=== PATIENT | male | born 2000 | race Caucasian/White ===

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

== ENCOUNTER 2020-10-12 07:10 | Emergency (ER) | payer OTHER ==
[~2020-10-12] VITALS: Ht 170.2 cm; Wt 67.6 kg
[~2020-10-12 07:10] MED LIST changes: -ADAL40PEN; +ADAL40PEN IM
== END 2020-10-12 08:47 | disposition home or self-care (01) ==
LOC: ER 07:10
DX: U07.1 COVID-19 (principal); Z87.891 Personal history of nicotine dependence
CPT/HCPCS: 99284

== ENCOUNTER 2021-07-25 08:57 | Day surgery (SDC) | payer OTHER ==
[~2021-07-25] VITALS: Ht 172.7 cm; Wt 61.6 kg
--- NOTE | 2021-07-25 12:02 | NUR ---
07/25/21 1202 Beau Lo LATE ENTRY: PT WOKE UP FROM PROCEDURE WELL, COMMUNICATES CLEARLY. PT STATES HE FEELS GREAT PRIOR TO GOING HOME. PT HEART RATE DROPPED TO 42BPM DURING RECOVERY, PT ASYMPTOMATIC AND COMMUNICATES CLEARLY. DR. GOMEZ AWARE AND IS OK TO DISCHARGE PT HOME. RN EDUCATED PT AND FAMILY MEMBER TO FOLLOW UP WITH PCP ESPECIALLY IF PT STARTS TO HAVE ANY SYMPTOMS FROM BRADYCARDIA.
== END 2021-07-25 11:40 | disposition home or self-care (01) ==
LOC: ORSCSDS 08:57
PROVIDERS: Internal Medicine Gastroenterology
PROC: 0DBE8ZX Excision of Large Intestine, Via Natural or Artificial Opening Endoscopic, Diagnostic (ICD-10-PCS; principal; 2021-07-25 10:15)
DX: K50.813 Crohn's disease of both small and large intestine with fistula (principal); Z86.010 Personal history of colon polyps; Z86.16 Personal history of COVID-19; Z79.899 Other long term (current) drug therapy
CPT/HCPCS: 88305; J2250; J2704; J7120

== ENCOUNTER 2021-11-17 20:22 | Emergency (ER) | payer OTHER ==
[~2021-11-17] VITALS: Ht 170.2 cm; Wt 63.0 kg
[2021-11-17 21:48] LABS: BASOPHILS ABSOLUTE AUTO 0.08 K/mm3 (0.00-0.23); BASOPHILS PERCENT AUTO 1 % (0-2); EOSINOPHILS ABSOLUTE AUTO 0.09 K/mm3 (0.00-0.68); EOSINOPHILS PERCENT AUTO 1 % (0-6); Hematocrit 44.9 % (37.0-53.0); Hemoglobin 15.3 g/dL (13.5-17.5); IMMATURE GRAN ABSOLUTE AUTO 0.01 K/mm3 (0.00-0.10); IMMATURE GRAN PERCENT AUTO 0 % (0-1); LYMPHOCYTES ABSOLUTE AUTO 3.02 K/mm3 (0.84-5.20); LYMPHOCYTES PERCENT AUTO 39 % (21-46); MONOCYTES ABSOLUTE AUTO 1.23 K/mm3 (0.16-1.47); MONOCYTES PERCENT AUTO 16 % (4-13); Mean Corpuscular HGB 30.7 pg (26.0-34.0); Mean Corpuscular HGB Conc 34.1 g/dL (31.5-36.5); Mean Corpuscular Volume 90 fL (80-100); Mean Platelet Volume 9.9 fL (9.1-12.4); NEUTROPHILS ABSOLUTE AUTO 3.35 K/mm3 (1.96-9.15); NEUTROPHILS PERCENT AUTO 43 % (41-73); Platelet Count 280 K/mm3 (150-400); RDW Coefficient Variation 11.7 % (11.7-14.2); RDW Standard Deviation 38.1 fL (35.1-46.3); Red Blood Cell Count 4.99 M/mm3 (4.30-5.90); White Blood Cell Count 7.78 K/mm3 (4.00-11.30)
[2021-11-17 21:52] LABS: Albumin, Blood 3.9 g/dL (3.4-5.0); Albumin/Globulin Ratio 1.1 (0.8-1.8); Bilirubin, Total 0.5 mg/dL (0.1-1.0); Bun/Creatinine Ratio 14.7 (12.0-20.0); Calcium, Blood 9.4 mg/dL (8.5-10.1); Creatinine, Blood 0.82 mg/dL (0.60-1.20); Globulin, Blood 3.5 g/dL (2.2-4.0); Potassium, Blood 3.9 mmol/L (3.5-5.5); Total Protein, Blood 7.4 g/dL (6.4-8.2)
== END 2021-11-18 00:47 | disposition home or self-care (01) ==
LOC: ER 20:22
PROVIDERS: Student in an Organized Health Care Education/Training Program
DX: N20.0 Calculus of kidney (principal); Z87.891 Personal history of nicotine dependence; Z79.899 Other long term (current) drug therapy
CPT/HCPCS: 36415; 80053; 83690; 85025

== ENCOUNTER 2022-08-10 09:49 | Emergency (ER) | payer OTHER ==
[~2022-08-10] VITALS: Ht 170.2 cm; Wt 59.0 kg
[2022-08-10 10:30] LABS: BASOPHILS ABSOLUTE AUTO 0.07 K/mm3 (0.00-0.23); BASOPHILS PERCENT AUTO 1 % (0-2); EOSINOPHILS ABSOLUTE AUTO 0.09 K/mm3 (0.00-0.68); EOSINOPHILS PERCENT AUTO 1 % (0-6); Hematocrit 44.1 % (37.0-53.0); Hemoglobin 15.1 g/dL (13.5-17.5); IMMATURE GRAN ABSOLUTE AUTO 0.01 K/mm3 (0.00-0.10); IMMATURE GRAN PERCENT AUTO 0 % (0-1); LYMPHOCYTES ABSOLUTE AUTO 3.03 K/mm3 (0.84-5.20); LYMPHOCYTES PERCENT AUTO 36 % (21-46); MONOCYTES ABSOLUTE AUTO 1.04 K/mm3 (0.16-1.47); MONOCYTES PERCENT AUTO 12 % (4-13); Mean Corpuscular HGB 30.7 pg (26.0-34.0); Mean Corpuscular HGB Conc 34.2 g/dL (31.5-36.5); Mean Corpuscular Volume 90 fL (80-100); Mean Platelet Volume 9.8 fL (9.1-12.4); NEUTROPHILS ABSOLUTE AUTO 4.27 K/mm3 (1.96-9.15); NEUTROPHILS PERCENT AUTO 50 % (41-73); Platelet Count 255 K/mm3 (150-400); RDW Standard Deviation 39.5 fL (35.1-46.3); Red Blood Cell Count 4.92 M/mm3 (4.30-5.90); White Blood Cell Count 8.51 K/mm3 (4.00-11.30)
[2022-08-10 10:57] LABS: Albumin, Blood 4.2 g/dL (3.4-5.0); Albumin/Globulin Ratio 1.3 (0.8-1.8); Bilirubin, Total 0.6 mg/dL (0.1-1.0); Bun/Creatinine Ratio 15.7 (12.0-20.0); Creatinine, Blood 1.02 mg/dL (0.60-1.20); Globulin, Blood 3.2 g/dL (2.2-4.0); Potassium, Blood 4.1 mmol/L (3.5-5.5); Total Protein, Blood 7.4 g/dL (6.4-8.2)
[2022-08-10 11:07] LABS: Source, Urine Clean Catch
[2022-08-10 11:21] LABS: Appearance, Urine Hazy (Clear); Bilirubin, Urine Neg (Neg); Blood, Urine 5+ (Neg); Color, Urine Amber (P-Yellow); Glucose Qualitative, Urine Neg (Neg); Ketones, Urine Neg (Neg); Leukocyte Esterase, Urine Neg (Neg); Nitrite, Urine Neg (Neg); Protein, Urine 2+ (Neg); Specific Gravity, Urine 1.015 (1.003-1.022); Urobilinogen, Urine NORM (Normal)
[2022-08-10 11:40] LABS: Bacteria Rare /hpf; Red Blood Cells, Urine 25-50 /hpf (0-2); Squamous Epithelial Cells Not Seen /hpf (Few); White Blood Cells, Urine 0-2 /hpf (0-5)
[2022-08-10 12:15] VITALS: BP 125/77
[2022-08-10] MEDS ORDERED: ONDA4ODT MM (13:48)
== END 2022-08-10 14:03 | disposition home or self-care (01) ==
LOC: ER 09:49
PROVIDERS: Physician Assistant; Student in an Organized Health Care Education/Training Program
DX: N13.2 Hydronephrosis with renal and ureteral calculous obstruction (principal); N50.811 Right testicular pain
CPT/HCPCS: 74177; 76870; 80053; 81001; 83690; 85025; J1885; Q9967

== ENCOUNTER → 2024-02-17 | Outpatient (CLI) | payer OTHER ==
[~2024-02-17] MED LIST changes: +ONDA4ODT MM
[2024-02-22 11:31] LABS: CALCIUM, URINE - PER 24H 142 mg/d (100-250); CALCIUM, URINE - PER VOLUME 20.3 mg/dL; CHLORIDE, URINE - PER 24H 112 mmol/d (140-250); CHLORIDE, URINE - PER VOLUME 160 mmol/L; CITRIC ACID, URINE - PER 24H 218 mg/d (320-1240); CITRIC ACID,URINE - PER VOLUME 311 mg/L; CREATININE, URINE - PER 24H 1169 mg/d (1000-2500); CREATININE, URINE - PER VOLUME 167 mg/dL; HOURS COLLECTED 24 hr; MAGNESIUM, URINE PER 24H 56 mg/d (12-199); OXALATE, URINE - PER 24H 13 mg/d (16-49); OXALATE, URINE - PER VOLUME 19 mg/L; PH, URINE 5.74 (5.00-7.50); PHOSPHORUS, URINE - PER 24H 525 mg/d (400-1300); PHOSPHORUS, URINE - PER VOLUME 75 mg/dL; POTASSIUM, URINE - PER 24H 32 mmol/d (25-125); POTASSIUM, URINE - PER VOLUME 46 mmol/L; SODIUM, URINE - PER 24H 110 mmol/d (51-286); SODIUM, URINE - PER VOLUME 157 mmol/L; SULFATE, URINE - PER 24H 21 mmol/d (6-30); SULFATE, URINE - PER VOLUME 30 mmol/L; TOTAL VOLUME 700 mL; URIC ACID, URINE - PER 24H 358 mg/d (250-750); URIC ACID, URINE - PER VOLUME 51.2 mg/dL; URINE SUPERSATURATION INTERP Abnormal; URINE SUPERSATURATION, CAHPO4 1.95; URINE SUPERSATURATION, CAOX 6.43; URINE SUPERSATURATION, UA CALC 1.19
== END ==
LOC: LAB 06:00 → LAB SHORT 06:00
PROVIDERS: Physician Assistant Medical
DX: N13.2 Hydronephrosis with renal and ureteral calculous obstruction (principal)
CPT/HCPCS: 81003; 81050; 82131; 82140; 82340; 82436; 82507; 82570; 83735; 83935; 83945; 84105; 84133; 84300; 84392; 84560